=== PATIENT | female | born 1975 | race Caucasian/White ===

== ENCOUNTER 2016-09-18 15:58 | Emergency (ER) | payer BC ==
[~2016-09-18] VITALS: Ht 165.1 cm; Wt 52.3 kg
[~2016-09-18 15:58] MED LIST: MOTRIN 800800 MG/TAB PO; NAPROSYN500 MG PO; PERCOCET 325 MG1 TA2 PO; VALIUM 2MG T2 MG/TAB PO
[2016-09-18 16:00] VITALS: BP 111/74; PULSE 83; TEMP 98.3
[2016-09-18] MEDS ORDERED: CO Q-1010 M1 PO (16:03)
[2016-09-18] MEDS ORDERED: ASPIRIN 81M81 MG/TA2 PO (16:03)
[2016-09-18] MEDS ORDERED: ULTRAM 50MG TAB50 MG PO (16:04)
[2016-09-18] MEDS ORDERED: MAXALT5 MG PO (16:04)
[2016-09-18] MEDS ORDERED: NORCO 325 MG-51 TAB PO (17:29)
[2016-09-18] MEDS ORDERED: ATIVAN 1MG T1 MG/TAB PO (17:29)
== END 2016-09-18 17:54 | disposition home or self-care (01) ==
LOC: COL.ER 15:58
DX: M62.838 Other muscle spasm (principal)
CPT/HCPCS: J2060

== ENCOUNTER → 2016-10-13 | Outpatient (CLI) | payer BC ==
[~2016-10-13] MED LIST changes: +ASPIRIN 81M81 MG/TA2 PO; +ATIVAN 1MG T1 MG/TAB PO; +CELEXA10 MG PO; +CO Q-1010 M1 PO; +MAXALT5 MG PO; +MULTI VITAMINS1 TAB PO; +NATURAL MAGNES200 MG PO; +NORCO 325 MG-51 TAB PO; +ULTRAM 50MG TAB50 MG PO
== END ==
LOC: MHCPAIN 08:31
DX: G89.29 Other chronic pain (principal); M54.12 Radiculopathy, cervical region; M50.90 Cervical disc disorder, unspecified, unspecified cervical region; R51 Headache; Z79.82 Long term (current) use of aspirin
CPT/HCPCS: G0463

== ENCOUNTER 2016-12-29 17:26 | Emergency (ER) | payer BC ==
[~2016-12-29] VITALS: Ht 165.1 cm; Wt 52.3 kg
[~2016-12-29 17:26] MED LIST changes: -CELEXA10 MG PO; -MULTI VITAMINS1 TAB PO; -NATURAL MAGNES200 MG PO
[2016-12-29 17:33] VITALS: TEMP 97.7
[2016-12-29] MEDS ORDERED: CELEXA10 MG PO (17:37)
[2016-12-29] MEDS ORDERED: MULTI VITAMINS1 TAB PO (17:38)
[2016-12-29] MEDS ORDERED: NATURAL MAGNES200 MG PO (17:38)
[2016-12-29 20:23] VITALS: BP 120/60; PULSE 70
== END 2016-12-29 20:29 | disposition home or self-care (01) ==
LOC: COL.ER 17:26
DX: R51 Headache (principal); Z87.39 Personal history of other diseases of the musculoskeletal system and connective tissue
CPT/HCPCS: J1170; J1885; J2405; J7030

== ENCOUNTER → 2017-02-15 | Outpatient (CLI) | payer BC ==
[~2017-02-15] MED LIST changes: +CELEXA10 MG PO; +MULTI VITAMINS1 TAB PO; +NATURAL MAGNES200 MG PO
== END ==
LOC: MC.RAD 10:45
DX: Z12.31 Encounter for screening mammogram for malignant neoplasm of breast (principal)

== ENCOUNTER → 2018-04-08 | Outpatient (CLI) | payer BC | LOC: MC.RAD 03-01 09:00 | DX: Z12.31 Encounter for screening mammogram for malignant neoplasm of breast (principal) ==

== ENCOUNTER → 2020-03-22 | Outpatient (CLI) | payer BC | LOC: MC.RAD 13:02 | DX: Z12.31 Encounter for screening mammogram for malignant neoplasm of breast (principal) ==

== ENCOUNTER 2020-10-16 15:30 | Outpatient (RCR) | payer BC | END 2020-11-14 | disposition home or self-care (01) | LOC: MKS.ESL.PT | DX: G43.709 Chronic migraine without aura, not intractable, without status migrainosus (principal); M54.81 Occipital neuralgia ==

== ENCOUNTER 2021-02-09 15:39 | Emergency (ER) | payer BC ==
[~2021-02-09] VITALS: Ht 165.1 cm; Wt 54.5 kg
[2021-02-09 16:02] VITALS: TEMP 98.1
[2021-02-09 20:39] VITALS: BP 111/69; PULSE 80
== END 2021-02-09 20:40 | disposition home or self-care (01) ==
LOC: COL.ER 15:39
DX: R51.9 Headache, unspecified (principal)
CPT/HCPCS: J0780; J1100; J1200; J1885; J3360

== ENCOUNTER → 2022-08-26 | Outpatient (CLI) | payer BC | LOC: MC.RAD 14:30 | DX: Z12.31 Encounter for screening mammogram for malignant neoplasm of breast (principal) ==

== ENCOUNTER → 2023-07-22 | Outpatient (CLI) | payer SELFPAY | LOC: MKS.ESL.PT 16:00 | DX: G43.719 Chronic migraine without aura, intractable, without status migrainosus (principal); G44.85 Primary stabbing headache; M54.81 Occipital neuralgia ==

== ENCOUNTER 2023-07-29 11:00 | Outpatient (RCR) | payer BC | END 2023-08-01 | disposition home or self-care (01) | LOC: MKS.ESL.PT | DX: M54.81 Occipital neuralgia (principal); G43.719 Chronic migraine without aura, intractable, without status migrainosus; G44.89 Other headache syndrome ==

== ENCOUNTER → 2023-07-29 | Outpatient (CLI) | payer SELFPAY | LOC: MKS.ESL.PT 11:00 | DX: G43.719 Chronic migraine without aura, intractable, without status migrainosus (principal); M54.2 Cervicalgia; M54.81 Occipital neuralgia ==

== ENCOUNTER 2023-08-18 15:53 | Outpatient (RCR) | payer BC | END 2023-09-01 | disposition home or self-care (01) | LOC: MKS.ESL.PT | DX: G43.719 Chronic migraine without aura, intractable, without status migrainosus (principal); M54.2 Cervicalgia; M54.81 Occipital neuralgia ==

== ENCOUNTER → 2024-03-07 | Outpatient (CLI) | payer BC | LOC: MC.RAD 14:49 | DX: Z12.31 Encounter for screening mammogram for malignant neoplasm of breast (principal) ==